=== PATIENT | male | born 1960 | race Caucasian/White ===

== ENCOUNTER 2020-07-21 01:08 | Emergency (ER) | payer MEDICARE ==
[~2020-07-21 01:08] MED LIST: CITALOPRAM HBR40 MG PO; MORPHINE; PRILOSEC20 MG PO; VICODIN 10/3251 EACH PO
== END 2020-07-21 02:26 | disposition home or self-care (01) ==
LOC: FER 01:08
DX: T85.615A Breakdown (mechanical) of other nervous system device, implant or graft, initial encounter (principal); G89.29 Other chronic pain; M54.5 Low back pain; F17.210 Nicotine dependence, cigarettes, uncomplicated; Z79.899 Other long term (current) drug therapy; Y82.8 Other medical devices associated with adverse incidents
CPT/HCPCS: 96372; 99283; J1170; J2550